=== PATIENT | male | born 1950 | race African-American/Black ===

== ENCOUNTER 2023-03-25 13:35 | Emergency (ER) | payer BC, OTHER ==
[~2023-03-25] VITALS: Ht 177.8 cm; Wt 60.4 kg
[2023-03-25 14:46] LABS: Basophils # (auto) 0 10 ^3/uL (0-0.2); Basophils % (auto) 0.6 % (0.0-2.0); Eosinophils # (auto) 0.1 10 ^3/uL (0-0.8); Eosinophils % (auto) 1.7 % (0.0-7.0); Hematocrit 44.4 % (41.0-53.0); Hemoglobin 14.9 g/dL (13.5-17.5); Lymphocytes # (auto) 1.1 10 ^3/uL (0.4-5.4); Lymphocytes % (auto) 16.5 % (10.0-50.0); Mean Corpuscular Hgb Conc. 33.5 g/dL (32.0-36.0); Mean Corpuscular Volume 92.6 fL (80.0-100.0); Monocytes # (auto) 0.9 10 ^3/uL (0-1.3); Monocytes % (auto) 13.4 % (0.0-12.0); Neutrophils # (auto) 4.6 10 ^3/uL (1.6-8.6); Neutrophils % (auto) 67.8 % (37.0-80.0); Nucleated Red Blood Cells % 0.1 %; Red Cell Distribution Width 12.9 % (11.8-14.3); White Blood Cell 6.8 10^3/uL (4.4-10.8)
[2023-03-25 15:00] VITALS: PULSE 61; RESP 15; O2SAT 99
[2023-03-25 15:03] LABS: Alanine Aminotransferase 35 U/L (7-40); Albumin 4.6 g/dL (3.2-4.8); Alkaline Phosphatase 91 U/L (46-116); Anion Gap 8 (5-15); Aspartate Aminotransferase 54 U/L (13-40); BUN/Creatinine Ratio 16.5 (10.0-20.0); Bilirubin, Total 0.7 mg/dL (0.2-1.0); Blood Urea Nitrogen 18 mg/dL (9-23); Calcium 10.4 mg/dL (8.5-10.1); Carbon Dioxide 24 mmol/L (20-30); Chloride 107 mmol/L (98-107); Glucose 111 mg/dL (74-106); Potassium 4.1 mmol/L (3.5-5.1); Sodium 139 mmol/L (136-145); Total Protein 7.4 g/dL (5.7-8.2)
[2023-03-25 15:05] LABS: INR 1.89 (0.9-1.15); Partial Thromboplastin Time 37.2 SEC (24.5-34.5)
[2023-03-25] MEDS ORDERED: levETIRAcetam 1000 mg/100ml 100 ML IV ONE (15:15)
[2023-03-25] MEDS ORDERED: ROCURONIUM 10MG/ML 10ML VIAL IV ONE (16:00)
[2023-03-25] MEDS ORDERED: ETOMIDATE (2MG/ML) 20ML VIAL IV ONE (16:00)
[2023-03-25] MEDS ORDERED: MIDAZOLAM HCL 2MG/2ML 2ml VIAL (1mg/ml) IV ONE (16:15)
[2023-03-25] MEDS ORDERED: MIDAZOLAM HCL 5 MG/ML-1ML VIAL ONE (16:15)
[2023-03-25 16:27] VITALS: TEMP 95.4
[2023-03-25 16:28] VITALS: BP 198/109; PULSE 57; RESP 18; O2SAT 100
[2023-03-25 16:30] LABS: Magnesium 1.6 mg/dL (1.6-2.6)
[2023-03-25] MEDS ORDERED: PROPOFOL 100 ML IV ONE (16:38)
[2023-03-25] MEDS ORDERED: PROPOFOL 100 ML IV SCH (16:45)
== END 2023-03-25 16:45 | disposition short-term general hospital (02) ==
LOC: ER 13:35
DX: S06.300A Unspecified focal traumatic brain injury without loss of consciousness, initial encounter (principal); I10 Essential (primary) hypertension; E78.5 Hyperlipidemia, unspecified; Z86.73 Personal history of transient ischemic attack (TIA), and cerebral infarction without residual deficits; Z79.899 Other long term (current) drug therapy; Z86.2 Personal history of diseases of the blood and blood-forming organs and certain disorders involving the immune mechanism; W18.39XA Other fall on same level, initial encounter; Y93.89 Activity, other specified; Y92.098 Other place in other non-institutional residence as the place of occurrence of the external cause; Y99.8 Other external cause status
CPT/HCPCS: 31500; 36415; 70450; 71045; 80053; 83735; 83880; 84484; 85025; 85610; 85730; 93005; 96374; 99291; J2250; J2704